=== PATIENT | female | born 1965 | race Caucasian/White ===

== ENCOUNTER 2019-02-03 17:15 | Emergency (ER) | payer OTHER ==
[~2019-02-03] VITALS: Ht 157.5 cm; Wt 66.7 kg
== END 2019-02-03 18:58 | disposition home or self-care (01) ==
LOC: ER 17:15
DX: Z01.30 Encounter for examination of blood pressure without abnormal findings (principal)

== ENCOUNTER 2019-03-14 07:40 | Emergency (ER) | payer OTHER ==
[~2019-03-14] VITALS: Ht 160 cm; Wt 63.5 kg
[2019-03-14] MEDS ORDERED: ZYRTEC10 M3 PO (09:25)
[2019-03-14] MEDS ORDERED: BENADRYL25 MG PO (09:25)
[2019-03-14] MEDS ORDERED: CORTIZONE-10 PL28 GM TOP (09:25)
== END 2019-03-14 11:15 | disposition home or self-care (01) ==
LOC: ER 07:40
DX: R21 Rash and other nonspecific skin eruption (principal)

== ENCOUNTER 2020-02-05 13:23 | Emergency (ER) | payer OTHER ==
[~2020-02-05] VITALS: Ht 160 cm; Wt 63.5 kg
[~2020-02-05 13:23] MED LIST: BENADRYL25 MG PO; CORTIZONE-10 PL28 GM TOP; ZYRTEC10 M3 PO
== END 2020-02-05 17:26 | disposition home or self-care (01) ==
LOC: ER 13:23
DX: M94.0 Chondrocostal junction syndrome [Tietze] (principal); R07.89 Other chest pain